=== PATIENT | male | born 1995 ===

== ENCOUNTER 2018-07-09 07:08 | Emergency (ER) | payer MEDICAID ==
[~2018-07-09] VITALS: Wt 61.6 kg
[2018-07-09] MEDS ORDERED: OLANZAPINE (ODT) 5 MG TAB ODT ONE (08:00)
--- NOTE | 2018-07-09 09:27 | PSY ---
Date/Time of Note Date/Time of Note DATE: 07/09/18 TIME: 09:17 Psychiatric Subjective Eval Subjective Evaluation Patient location: emergency Chief Complaint: DEPRESSION, SUICIDAL IDEATION, STATES "HE WILL CUT HIMSELF" History of present illness Pt is an unfortunate 23 yo homeless male self presenting to ED stating he is suicidal and wants to cut himsef but didn't because he was afraid to cut the vein". He denies HI, denies AH or Vh. Pt was discharged from inpt psych w/o meds (per pt) yesterday. He says he is depressed about homelessness and wants to go back to inpt psych "for a few more days". Then the pt was offered an option of placement , like a sober living, he agrees and says he feels safe about it. Past psychiatric history prior inpt; hx cutting Hospitalization: yes Family History denies Medical history NAD Allergies: Coded Allergies: No Known Allergy (Unverified , 07/09/18) Substance Abuse Substance abuse history: Yes (thc) Prior substance abuse treatmen: No Social History Marital status: single Level of education: 11th grade Occupation/Senior Care: unemployed Psychiatric Objective Eval Review of Systems: Review of Systems: Not Applicable Physical Examination: Physical Examination: Not Applicable Sleep: Adequate Appetite: Adequate Energy: Adequate Interest: Adequate Mental Status Examination: Appearance: Disheveled Eye Contact: Good Psychomotor Activity: Normal Behavior: Cooperative Speech: Clear AFFECT: Appropriate Mood: Appropriate/Full Though Process: Linear Thought Content: Normal Suicidal: No Homicidal: No On 72 hour hold: No Orientation: x4 Cognition: Alert Insight: Impared Judgement: Intact Laboratory Results Laboratory Tests Test 07/09/18 07:47 07/09/18 07:48 White Blood Count 8.2 10^3/ul Red Blood Count 4.71 10^6/ul Hemoglobin 12.9 g/dl Hematocrit 38.9 % Mean Corpuscular Volume 82.6 fl Mean Corpuscular Hemoglobin 27.4 pg Mean Corpuscular Hemoglobin Concent 33.2 g/dl Red Cell Distribution Width 15.7 % Platelet Count 217 10^3/UL Mean Platelet Volume 10.2 fl Immature Granulocytes % 0.400 % Neutrophils % 79.8 % Lymphocytes % 10.7 % Monocytes % 7.3 % Eosinophils % 1.6 % Basophils % 0.2 % Nucleated Red Blood Cells % 0.0 /100WBC Immature Granulocytes # 0.030 10^3/ul Neutrophils # 6.6 10^3/ul Lymphocytes # 0.9 10^3/ul Monocytes # 0.6 10^3/ul Eosinophils # 0.1 10^3/ul Basophils # 0.0 10^3/ul Nucleated Red Blood Cells # 0.0 10^3/ul Sodium Level 141 mmol/L Potassium Level 4.4 mmol/L Chloride Level 99 mmol/L Carbon Dioxide Level 27 mmol/L Anion Gap 15 Blood Urea Nitrogen 12 mg/dl Creatinine 0.72 mg/dl Est Glomerular Filtrat Rate mL/min > 60 mL/min Glucose Level 85 mg/dl Calcium Level 9.1 mg/dl Total Bilirubin 0.2 mg/dl Direct Bilirubin 0.00 mg/dl Indirect Bilirubin 0.2 mg/dl Aspartate Amino Transf (AST/SGOT) 30 IU/L Alanine Aminotransferase (ALT/SGPT) 37 IU/L Alkaline Phosphatase 142 IU/L Total Protein 5.8 g/dl Albumin 4.0 g/dl Globulin 1.80 g/dl Albumin/Globulin Ratio 2.22 Salicylates Level < 1.0 mg/dl Acetaminophen Level < 10.0 ug/ml Ethyl Alcohol Level < 10.0 mg/dl Urine Color YELLOW Urine Clarity CLEAR Urine pH 5.0 Urine Specific [place] 1.016 Urine Ketones NEGATIVE mg/dL Urine Nitrite NEGATIVE mg/dL Urine Bilirubin NEGATIVE mg/dL Urine Urobilinogen NEGATIVE mg/dL Urine Leukocyte Esterase NEGATIVE Ernst/ul Urine Hemoglobin NEGATIVE mg/dL Urine Glucose NEGATIVE mg/dL Urine Total Protein NEGATIVE mg/dl Urine Opiates Screen NEGATIVE Urine Barbiturates NEGATIVE Urine Amphetamines Screen NEGATIVE Urine Benzodiazepines Screen NEGATIVE Urine Cocaine Screen NEGATIVE Urine Cannabinoids NEGATIVE Assessment and Plan Assessment/Diagnosis Diagnosis MALINGERING. UNSPECIFIED MOOD DISORDER. Recommendation/Plan Medication Management ZYPREXA 2.5 MG POQHS FOR MOOD, SLEEP Multiple antipsychotics: No Psychotherapy DEFER TO OUTPT Discharge Disposition: Community (Prison) Legal Status: Voluntary Other D/W DR FOOTE. PT DEMONSTRATES STRONG SECONDARY GAIN, RESCINDING ON HIS SUICIDAL STATEMENT IF A HOUSING WILL BE OFFERED TO HIM. CONTRACTS FOR SAFETY. SOC SERVICES CONSULTATION PLEASE. PT CAN BE DISCHARGED WITH OUTPT REFERRAL AND POSSIBLE PLACEMENT TO A SOBER LIVING. VISHAL GONZALEZ MD Jul 09, 2018 09:27
[2018-07-09 09:32] VITALS: BP 103/65; PULSE 67; RESP 18
--- NOTE | 2018-07-09 10:35 | NUR ---
SS Note: SW received order regarding SI. SW attempted to see pt, however, pt no longer in ED he was d/c.
--- NOTE | 2018-07-09 11:03 | ERD ---
ER Documentation Chief Complaint Chief Complaint DEPRESSION, SUICIDAL IDEATION, STATES "HE WILL CUT HIMSELF" HPI Patient is a 23-year-old male with bipolar and depression who presents with suicidal ideation. He says he has thoughts of cutting himself. He said that his symptoms started this morning because he is homeless. He is not on medications. He was released from [facility] yesterday after a psychiatric admission. ROS All systems reviewed and are negative except as per history of present illness. Medications Home Meds No Active Prescriptions or Reported Meds Allergies Allergies: Coded Allergies: No Known Allergy (Unverified , 07/09/18) PMhx/Soc History of Surgery: Yes (CARDIAC STENT PLACEMENT) Anesthesia Reaction: No Hx Neurological Disorder: No Hx Respiratory Disorders: No Hx Cardiac Disorders: Yes Hx Psychiatric Problems: Yes (DEPRESSION, ANXIETY, ADHD) Hx Miscellaneous Medical Probl: No (THOUGHTS OF SUICIDE, SUICIDE ATTEMPT) Hx Alcohol Use: Yes Hx Substance Use: Yes (MARIJUANA) Hx Tobacco Use: No Smoking Status: Former smoker FmHx Family History: No diabetes Physical Exam Vitals Vital Signs Date Temp Pulse Resp B/P (MAP) Pulse Ox O2 O2 Flow FiO2 Time Delivery Rate 07/09/18 67 18 103/65 99 Room Air 09:32 (78) 07/09/18 97.5 85 16 131/61 100 07:13 (84) Physical Exam Const: No acute distress Head: Atraumatic Eyes: Normal Conjunctiva ENT: Normal External Ears, Nose and Mouth. Neck: Full range of motion. No meningismus. Resp: Clear to auscultation bilaterally Cardio: Regular rate and rhythm, no murmurs Abd: Soft, non tender, non distended. Normal bowel sounds Skin: No petechiae or rashes Back: No midline or flank tenderness Ext: No cyanosis, or edema Neur: Awake and alert Psych: Admits to suicidal ideation with plan to cut himself Result Diagram: 07/09/18 0747 07/09/18 0747 Results 24 hrs Laboratory Tests Test 07/09/18 07:47 07/09/18 07:48 White Blood Count 8.2 10^3/ul Red Blood Count 4.71 10^6/ul Hemoglobin 12.9 g/dl Hematocrit 38.9 % Mean Corpuscular Volume 82.6 fl Mean Corpuscular Hemoglobin 27.4 pg Mean Corpuscular Hemoglobin Concent 33.2 g/dl Red Cell Distribution Width 15.7 % Platelet Count 217 10^3/UL Mean Platelet Volume 10.2 fl Immature Granulocytes % 0.400 % Neutrophils % 79.8 % Lymphocytes % 10.7 % Monocytes % 7.3 % Eosinophils % 1.6 % Basophils % 0.2 % Nucleated Red Blood Cells % 0.0 /100WBC Immature Granulocytes # 0.030 10^3/ul Neutrophils # 6.6 10^3/ul Lymphocytes # 0.9 10^3/ul Monocytes # 0.6 10^3/ul Eosinophils # 0.1 10^3/ul Basophils # 0.0 10^3/ul Nucleated Red Blood Cells # 0.0 10^3/ul Sodium Level 141 mmol/L Potassium Level 4.4 mmol/L Chloride Level 99 mmol/L Carbon Dioxide Level 27 mmol/L Anion Gap 15 Blood Urea Nitrogen 12 mg/dl Creatinine 0.72 mg/dl Est Glomerular Filtrat Rate mL/min > 60 mL/min Glucose Level 85 mg/dl Calcium Level 9.1 mg/dl Total Bilirubin 0.2 mg/dl Direct Bilirubin 0.00 mg/dl Indirect Bilirubin 0.2 mg/dl Aspartate Amino Transf (AST/SGOT) 30 IU/L Alanine Aminotransferase (ALT/SGPT) 37 IU/L Alkaline Phosphatase 142 IU/L Total Protein 5.8 g/dl Albumin 4.0 g/dl Globulin 1.80 g/dl Albumin/Globulin Ratio 2.22 Salicylates Level < 1.0 mg/dl Acetaminophen Level < 10.0 ug/ml Ethyl Alcohol Level < 10.0 mg/dl Urine Color YELLOW Urine Clarity CLEAR Urine pH 5.0 Urine Specific [place] 1.016 Urine Ketones NEGATIVE mg/dL Urine Nitrite NEGATIVE mg/dL Urine Bilirubin NEGATIVE mg/dL Urine Urobilinogen NEGATIVE mg/dL Urine Leukocyte Esterase NEGATIVE Ernst/ul Urine Hemoglobin NEGATIVE mg/dL Urine Glucose NEGATIVE mg/dL Urine Total Protein NEGATIVE mg/dl Urine Opiates Screen NEGATIVE Urine Barbiturates NEGATIVE Urine Amphetamines Screen NEGATIVE Urine Benzodiazepines Screen NEGATIVE Urine Cocaine Screen NEGATIVE Urine Cannabinoids NEGATIVE Current Medications Medications Dose Sig/More Start Time Status Last (Trade) Ordered Route PRN Stop Time Admin Dose Reason Admin Olanzapine 5 mg ONCE ONCE 07/09/18 DC 07/09/18 (Zyprexa ODT 08:00 07/09/18 08:04 Zydis) 08:01 Procedures/MDM Patient is a 23-year-old male who presents with suicidal ideation. The patient was seen by psychiatry who felt like he was malingering as he was just discharged from a psychiatric hospital yesterday. He is homeless. We will have social group worker discuss possible placement options for housing with him. The patient does not require a 5150 hold. The patient can return for any worsening symptoms. Departure Diagnosis: Primary Impression: Suicidal ideation Condition: Fair Patient Instructions: Recognizing Suicide Warning Signs in Yourself Referrals: [facility] YOU HAVE RECEIVED A MEDICAL SCREENING EXAM AND THE RESULTS INDICATE THAT YOU DO NOT HAVE A CONDITION THAT REQUIRES URGENT TREATMENT IN THE EMERGENCY DEPARTMENT. FURTHER EVALUATION AND TREATMENT OF YOUR CONDITION CAN WAIT UNTIL YOU ARE SEEN IN YOUR DOCTORS OFFICE WITHIN THE NEXT 1-2 DAYS. IT IS YOUR RESPONSIBILITY TO MAKE AN APPOINTMENT FOR FOLOW-UP CARE. IF YOU HAVE A PRIMARY DOCTOR --you should call your primary doctor and schedule an appointment IF YOU DO NOT HAVE A PRIMARY DOCTOR YOU CAN CALL OUR PHYSICIAN REFERRAL HOTLINE AT IF YOU CAN NOT AFFORD TO SEE A PHYSICIAN YOU CAN CHOSE FROM THE FOLLOWING [facility] [address] [facility]. [facility] [address] [facility]. [facility] [address] [facility] [facility] [address] [facility]. [facility] [address] [facility]. [facility]. [address] Additional Instructions: Call your primary care doctor TOMORROW for an appointment during the next 1-2 days.See the doctor sooner or return here if your condition worsens before your appointment time. PEGGY FOOTE MD Jul 09, 2018 11:03
== END 2018-07-09 09:36 | disposition home or self-care (01) ==
LOC: E/R 07:08
DX: R45.851 Suicidal ideations (principal); Z87.891 Personal history of nicotine dependence; Z98.61 Coronary angioplasty status
CPT/HCPCS: 36415; 80053; 80307; 81003; 85025; Z7502; Z7610